=== PATIENT | female | born 1995 | race Hispanic/Latino ===

== ENCOUNTER 2017-07-23 18:00 | Inpatient (IN) | payer MEDICAID ==
[~2017-07-23] VITALS: Ht 162.6 cm; Wt 90.3 kg
[2017-07-23 18:56] LABS: MEAN CORPUSCULAR HEMOGLOBIN 28.2 pg (27.0-33.0); MEAN CORPUSCULAR HGB CONC 34.6 g/dL (32.0-36.0); MEAN CORPUSCULAR VOLUME 81.3 fL (79-99); PLATELET COUNT (AUTO) 220 K/uL (130-400); RED BLOOD CELL COUNT(AUTO) 4.31 MIL/uL (4.00-5.50); RED CELL DISTRIBUTION WIDTH 13.5 % (11.0-15.5); WHITE BLOOD COUNT (AUTO) 9.8 K/uL (4.8-10.8)
[2017-07-23] MEDS ORDERED: OXYTOCIN-LR 20 UNITS/1000 ML 1,000 ML IV SCH (19:00)
[2017-07-23] MEDS ORDERED: DINOPROSTONE 10 MG VAGINAL SUPP VG SCH (19:00)
[2017-07-23] MEDS: LACTATED RINGERS 1000ML 1,000 ML IV PRN (19:29)
[2017-07-23 19:49] VITALS: BP 118/79
[2017-07-23 20:08] LABS: APPEARANCE,URINE Cloudy (CLEAR); BILIRUBIN,URINE Negative (NEGATIVE); COLOR,URINE Dark Yellow (YELLOW); GLUCOSE, URINE (UA) Negative (NEGATIVE); KETONES,URINE 15 mg/dL (NEGATIVE); LEUKOCYTE ESTERASE ,URINE Moderate (NEGATIVE); NITRATE,URINE Negative (NEGATIVE); OCCULT BLOOD,URINE Negative (NEGATIVE); PH,URINE 5.5 (5.0-8.0); PROTEIN,URINE Negative (NEGATIVE)
[2017-07-23 20:19] LABS: SQUAMOUS EPITHELIAL CELL,UR 50-100 /LPF (0-2)
[2017-07-23 20:20] LABS: BACTERIA,URINE Many /HPF (None Seen); CALCIUM OXALATE CRYSTALS,UR Few /LPF (None Seen); MUCUS,URINE Few LPF (None Seen); RBC,URINE None Seen /HPF (0-1)
[2017-07-24] MEDS: LACTATED RINGERS 1000ML 1,000 ML IV PRN ×2 (02:12→19:50)
[2017-07-24] MEDS ORDERED: OXYTOCIN 10 USP UNITS/ML ONE (08:35)
[2017-07-24] MEDS ORDERED: OXYTOCIN-LR 20 UNITS/1000 ML 1,000 ML IV SCH (19:15)
[2017-07-25] MEDS ORDERED: OXYTOCIN 10 USP UNITS/ML ONE ×2 (03:29→12:34)
[2017-07-25] MEDS ORDERED: LACTATED RINGERS 1000ML 1,000 ML IV ONE ×2 (03:29→12:34)
[2017-07-25] MEDS ORDERED: BUTORPHANOL TARTRATE 2 MG/ML ONE (06:55)
[2017-07-25] MEDS ORDERED: BUTORPHANOL TARTRATE 2 MG/ML IVP SCH (07:00)
[2017-07-25] MEDS ORDERED: NALOXONE HCL 0.4 MG/1 ML ML IV PRN (07:30)
[2017-07-25] MEDS ORDERED: LACTATED RINGERS 500 ML 500 ML IV PRN (07:30)
[2017-07-25] MEDS ORDERED: EPHEDRINE SULFATE 50 MG/ML AMPULE IVP PRN (07:30)
[2017-07-25 10:15] LABS: HEPATITIS Bs ANTIGEN SCREEN P Negative (Negative)
[2017-07-25] MEDS ORDERED: LANOLIN 30GM OINTMENT TP PRN (12:00)
[2017-07-25] MEDS ORDERED: ACETAMINOPHEN 325 MG TAB PO PRN (12:00)
[2017-07-25] MEDS ORDERED: BENZOCAINE/LANOLIN/ALOE VERA 60 ML AEROSOL TP PRN (12:00)
[2017-07-25] MEDS ORDERED: WITCH HAZEL 1 PAD TP PRN (12:00)
[2017-07-25] MEDS ORDERED: DIPH,PERTUSS(ACELL),TET VAC/PF 0.5 ML VIAL IM PRN (12:00)
[2017-07-25] MEDS ORDERED: MEASLES/MUMPS/RUBELLA VACCINE, LIVE 0.5 ML/VIAL SQ PRN (12:00)
[2017-07-25 14:10] VITALS: BP 130/74
[2017-07-25] MEDS: IBUPROFEN 800 MG TAB PO PRN (14:58)
[2017-07-25 15:46] VITALS: BP 122/75
[2017-07-25 19:24] VITALS: BP 115/59
[2017-07-25] MEDS: DOCUSATE SODIUM 100 MG CAP PO SCH (21:12)
[2017-07-25 23:02] VITALS: BP 112/71
[2017-07-26] MEDS: IBUPROFEN 800 MG TAB PO PRN ×2 (00:08→08:45)
[2017-07-26 03:25] VITALS: BP 98/54
[2017-07-26 06:58] LABS: HEMATOCRIT 28.5 % (36-48); MEAN CORPUSCULAR HEMOGLOBIN 28.6 pg (27.0-33.0); MEAN CORPUSCULAR HGB CONC 35.2 g/dL (32.0-36.0); MEAN CORPUSCULAR VOLUME 81.2 fL (79-99); PLATELET COUNT (AUTO) 169 K/uL (130-400); RED BLOOD CELL COUNT(AUTO) 3.51 MIL/uL (4.00-5.50); RED CELL DISTRIBUTION WIDTH 13.5 % (11.0-15.5); WHITE BLOOD COUNT (AUTO) 17.6 K/uL (4.8-10.8)
[2017-07-26 07:45] VITALS: BP 96/58
[2017-07-26] MEDS: DOCUSATE SODIUM 100 MG CAP PO SCH (08:43)
[2017-07-26] MEDS ORDERED: MO6B PO (11:06)
[2017-07-26 11:41] VITALS: BP 99/67
== END 2017-07-26 13:55 | disposition home or self-care (01) | DRG 560 ==
LOC: LDH 18:00 → WSH 07-25 14:04 → EDSTATUS 07-27 17:59
PROVIDERS: ADMIT Obstetrics & Gynecology; ATTEND Obstetrics & Gynecology
PROC: 10E0XZZ Delivery of Products of Conception, External Approach (ICD-10-PCS; principal; 2017-07-25)
PROC: 0KQM0ZZ Repair Perineum Muscle, Open Approach (ICD-10-PCS; 2017-07-25)
PROC: 3E0R3BZ Introduction of Anesthetic Agent into Spinal Canal, Percutaneous Approach (ICD-10-PCS; 2017-07-25)
PROC: 00HU33Z Insertion of Infusion Device into Spinal Canal, Percutaneous Approach (ICD-10-PCS; 2017-07-25)
PROC: 10907ZC Drainage of Amniotic Fluid, Therapeutic from Products of Conception, Via Natural or Artificial Opening (ICD-10-PCS; 2017-07-25)
PROC: 3E033VJ Introduction of Other Hormone into Peripheral Vein, Percutaneous Approach (ICD-10-PCS; 2017-07-25)
PROC: 3E0234Z Introduction of Serum, Toxoid and Vaccine into Muscle, Percutaneous Approach (ICD-10-PCS; 2017-07-25)
PROC: 3E0234Z Introduction of Serum, Toxoid and Vaccine into Muscle, Percutaneous Approach (ICD-10-PCS; 2017-07-25)
DX: O70.1 Second degree perineal laceration during delivery (principal); Z23 Encounter for immunization; Z37.0 Single live birth; Z3A.39 39 weeks gestation of pregnancy
CPT/HCPCS: 36415; 76815; 81001; 85027; 86592; 86850; 86900; 86901; 87340; 90715; A4314; J0595; J2590; J7120

== ENCOUNTER 2018-06-21 11:16 | Emergency (ER) | payer BC, MEDICAID, OTHER ==
[~2018-06-21 11:16] MED LIST: MO6B PO
[2018-06-21 11:58] LABS: BASOPHILS % (AUTO) 0.4 % (0.0-5.0); EOSINOPHILS % (AUTO) 1.5 % (0.0-8.0); HEMATOCRIT 42.2 % (36-48); LYMPHOCYTES % (AUTO) 17.5 % (21.0-51.0); MEAN CORPUSCULAR HEMOGLOBIN 28.9 pg (27.0-33.0); MEAN CORPUSCULAR HGB CONC 33.9 g/dL (32.0-36.0); MEAN CORPUSCULAR VOLUME 85.1 fL (79-99); MONOCYTES % (AUTO) 6.6 % (3.0-13.0); NUCLEATED RED BLOOD CELLS 0.1 % (0.0-0.19); PLATELET COUNT (AUTO) 238 K/uL (130-400); RED BLOOD CELL COUNT(AUTO) 4.95 MIL/uL (4.00-5.50); RED CELL DISTRIBUTION WIDTH 13.2 % (11.0-15.5); WHITE BLOOD COUNT (AUTO) 8.1 K/uL (4.8-10.8)
== END 2018-06-21 14:39 | disposition home or self-care (01) ==
LOC: EDH 11:16
DX: O20.9 Hemorrhage in early pregnancy, unspecified (principal); Z3A.01 Less than 8 weeks gestation of pregnancy
CPT/HCPCS: 36415; 76817; 84702; 85025; 86900; 86901